=== PATIENT | male | born 1975 ===

== ENCOUNTER 2024-02-23 04:10 | Day surgery (SDC) | payer BC, OTHER ==
[2024-02-17 12:55] VITALS: BMI 27.7
[2024-02-23] MEDS ORDERED: MIDAZOLAM HCL 2 MG/2 ML SINGLE DOSE VIAL ONE (09:55)
[2024-02-23 10:36] VITALS: RESP 18
[2024-02-23 11:33] VITALS: BP 138/82; PULSE 72; TEMP 97.7
== END 2024-02-23 11:32 | disposition home or self-care (01) ==
LOC: JASU-SURG 04:10
PROVIDERS: ATTEND Urology
PROC: 0TF4XZZ Fragmentation in Left Kidney Pelvis, External Approach (ICD-10-PCS; principal; 2024-02-23 09:30)
DX: N20.0 Calculus of kidney (principal)